=== PATIENT | male | born 1975 | race Caucasian/White ===

== ENCOUNTER → 2018-06-03 | Outpatient (CLI) | payer OTHER ==
[~2018-06-03] MED LIST: CEPH500 PO; CIPR500 PO; CYCL10 PO; DIAZ5 PO; HYDACE5 PO; HYDR25SUP PR; IBUPROFEN; IBUPROFEN 400 MG; KETO10 PO; LEVFLO500 PO; NAPR500 PO; OXYACE5T PO; OXYACE7.5T PO; PANT40 PO; PRILOSEC OTC PO; PRILOSEC-OTC; RXCYCL10 PO; RXHYDACE PO; RXOXYACE PO; VIT C
== END ==
LOC: LAB 19:13 → LAB SHORT 19:13
DX: B99.9 Unspecified infectious disease (principal)
CPT/HCPCS: 87070; 87147; 87205

== ENCOUNTER → 2024-11-08 | Outpatient (CLI) | payer OTHER ==
[2024-11-08 20:15] LABS: Calcium, Urine 8.9 mg/dL (< 17.5); Calcium, Urine Calculation 169.1 mg/24hrs (42.0-353.0)
== END ==
LOC: LAB 13:20 → LAB SHORT 13:20 → LAB FUT 11-03 13:10
PROVIDERS: Student in an Organized Health Care Education/Training Program
DX: E20.9 Hypoparathyroidism, unspecified (principal); F32.A Depression, unspecified; R53.83 Other fatigue
CPT/HCPCS: 81050; 82340; 82570